=== PATIENT | male | born 1985 | race Native Hawaiian/Other Pacific Islander ===

== ENCOUNTER 2017-08-08 13:06 | Emergency (ER) | payer MEDICAID, OTHER ==
[~2017-08-08] VITALS: Ht 167.6 cm; Wt 98.0 kg
[2017-08-08] MEDS ORDERED: KETOROLAC TROMETHAMINE 60 MG/2 ML VIAL IM ONE (15:15)
[2017-08-08 15:38] LABS: ANION GAP 10 mmol/L (8-16); BASOPHILS % (AUTO) 0.4 % (0.0-2.0); CALCIUM, TOTAL 9.2 mg/dL (8.8-10.5); CARBON DIOXIDE 28 mmol/L (22-29); CHLORIDE 100 mmol/L (98-107); CREATININE 1.44 mg/dL (0.60-1.30); EOSINOPHILS % (AUTO) 4.7 % (1.0-6.0); GLOMERULAR FILTR. RATE CALC 57 mL/min (>60); GLUCOSE,RANDOM 133 mg/dL (70-110); HEMATOCRIT 50.9 % (41-53); LYMPHOCYTES # (AUTO) 2.1 K/uL (1.0-4.8); MEAN CORPUSCULAR HEMOGLOBIN 27.6 pg (26.0-34.0); MEAN CORPUSCULAR HGB CONC 33.5 G/dL (31.0-37.0); MEAN CORPUSCULAR VOLUME 82 fL (80-100); MONOCYTES # (AUTO) 0.8 K/uL (0.1-1.0); MONOCYTES % (AUTO) 7.6 % (2.0-9.0); NEUTROPHILS # (AUTO) 7.5 K/uL (1.8-7.7); NEUTROPHILS % (AUTO) 68.3 % (40.0-70.0); PLATELET COUNT (AUTO) 254 K/uL (150-450); POTASSIUM 3.5 mmol/L (3.5-5.1); RED BLOOD CELL COUNT(AUTO) 6.19 MIL/uL (4.50-5.90); RED CELL DISTRIBUTION WIDTH 14.4 % (11.5-14.5); SODIUM SERUM 138 mmol/L (136-145); UREA NITROGEN, BLOOD 13 mg/dL (7-18)
[2017-08-08 15:44] LABS: INR 0.9 (0.9-1.1); PROTHROMBIN TIME 9.5 SEC (9.4-11.6)
[2017-08-08 16:03] LABS: ALANINE AMINOTRANSFERASE 84 U/L (12-78); ALBUMIN 3.7 g/dL (3.4-5.0); ALKALINE PHOSPHATASE 125 U/L (46-116); ASPARTATE AMINOTRANSFERASE 27 U/L (15-37); BILIRUBIN,TOTAL 0.3 mg/dL (0.1-1.0); CREATINE KINASE MB 1.6 ng/mL (0-5); CREATINE KINASE, TOTAL 161 U/L (39-308); TOTAL PROTEIN, SERUM 8.4 g/dL (6.4-8.2)
[2017-08-08 16:24] LABS: B-TYPE NATRIURETIC PEPTIDE 5 pg/mL (0-100)
[2017-08-08 17:33] VITALS: BP 138/78
== END 2017-08-08 17:36 | disposition home or self-care (01) ==
LOC: EMS 13:07
DX: S29.012A Strain of muscle and tendon of back wall of thorax, initial encounter (principal); X58.XXXA Exposure to other specified factors, initial encounter; Y93.89 Activity, other specified; Y92.89 Other specified places as the place of occurrence of the external cause; Y99.8 Other external cause status; R79.1 Abnormal coagulation profile
CPT/HCPCS: 71045; 80053; 82550; 82553; 83880; 84484; 85025; 85610; 85730; 93005; 96372; 99285; J1885